=== PATIENT | female | born 1955 | race Caucasian/White ===

== ENCOUNTER 2016-06-28 15:16 | Emergency (ER) | payer OTHER ==
[~2016-06-28 15:16] MED LIST: CIPRO500 MG PO; HYDROCODON-ACE1 EAC4 PO; KLONOPIN0.5 MG PO; MAGNESIUM OXID400 MG PO; POTASSIUM CHLOR8 ME1 PO; ZOFRAN4 MG PO
== END 2016-06-28 16:38 | disposition home or self-care (01) ==
LOC: ER 15:16
DX: N39.0 Urinary tract infection, site not specified (principal); F41.9 Anxiety disorder, unspecified; D64.9 Anemia, unspecified; G43.909 Migraine, unspecified, not intractable, without status migrainosus; Z88.0 Allergy status to penicillin; Z88.5 Allergy status to narcotic agent; Z90.710 Acquired absence of both cervix and uterus

== ENCOUNTER 2016-06-30 21:08 | Emergency (ER) | payer OTHER | END 2016-06-30 22:44 | disposition home or self-care (01) | LOC: ER 21:08 | DX: S82.52XA Displaced fracture of medial malleolus of left tibia, initial encounter for closed fracture (principal); S80.02XA Contusion of left knee, initial encounter; F41.9 Anxiety disorder, unspecified; D64.9 Anemia, unspecified; G43.909 Migraine, unspecified, not intractable, without status migrainosus; Z87.440 Personal history of urinary (tract) infections; Z90.710 Acquired absence of both cervix and uterus; Z88.0 Allergy status to penicillin; Z88.5 Allergy status to narcotic agent; W19.XXXA Unspecified fall, initial encounter; Y92.009 Unspecified place in unspecified non-institutional (private) residence as the place of occurrence of the external cause ==

== ENCOUNTER 2016-07-07 15:07 | Emergency (ER) | payer OTHER | END 2016-07-07 16:00 | disposition home or self-care (01) | LOC: ER 15:07 | DX: S20.212A Contusion of left front wall of thorax, initial encounter (principal); F41.9 Anxiety disorder, unspecified; D64.9 Anemia, unspecified; G43.909 Migraine, unspecified, not intractable, without status migrainosus; Z87.440 Personal history of urinary (tract) infections; Z90.710 Acquired absence of both cervix and uterus; Z88.0 Allergy status to penicillin; Z88.5 Allergy status to narcotic agent; V87.8XXA Person injured in other specified noncollision transport accidents involving motor vehicle (traffic), initial encounter; Y92.410 Unspecified street and highway as the place of occurrence of the external cause ==

== ENCOUNTER 2016-07-15 14:45 | Emergency (ER) | payer OTHER | END 2016-07-15 15:35 | disposition home or self-care (01) | LOC: ER 14:45 | DX: S90.32XA Contusion of left foot, initial encounter (principal); F41.9 Anxiety disorder, unspecified; D64.9 Anemia, unspecified; G43.909 Migraine, unspecified, not intractable, without status migrainosus; Z87.440 Personal history of urinary (tract) infections; Z90.710 Acquired absence of both cervix and uterus; Z88.0 Allergy status to penicillin; Z88.5 Allergy status to narcotic agent; Z88.6 Allergy status to analgesic agent; W22.8XXA Striking against or struck by other objects, initial encounter ==

== ENCOUNTER 2016-08-05 02:09 | Emergency (ER) | payer OTHER | END 2016-08-05 05:07 | disposition home or self-care (01) | LOC: ER 02:09 | DX: N39.0 Urinary tract infection, site not specified (principal); F41.9 Anxiety disorder, unspecified; D64.9 Anemia, unspecified; E78.5 Hyperlipidemia, unspecified; G43.909 Migraine, unspecified, not intractable, without status migrainosus; Z90.710 Acquired absence of both cervix and uterus; Z79.899 Other long term (current) drug therapy; Z88.0 Allergy status to penicillin; Z88.5 Allergy status to narcotic agent | CPT/HCPCS: 36415; 96361; 96374; 96375 ==

== ENCOUNTER 2016-08-11 01:59 | Emergency (ER) | payer OTHER | END 2016-08-11 04:00 | disposition home or self-care (01) | LOC: ER 01:59 | DX: R10.11 Right upper quadrant pain (principal); G89.29 Other chronic pain; M54.9 Dorsalgia, unspecified; F41.9 Anxiety disorder, unspecified; D64.9 Anemia, unspecified; G43.909 Migraine, unspecified, not intractable, without status migrainosus; Z87.440 Personal history of urinary (tract) infections; Z90.710 Acquired absence of both cervix and uterus; Z79.899 Other long term (current) drug therapy; Z88.0 Allergy status to penicillin; Z88.5 Allergy status to narcotic agent; Z88.8 Allergy status to other drugs, medicaments and biological substances | CPT/HCPCS: 36415; 96361; 96374; 96375; 96376; J1885 ==